=== PATIENT | male | born 1960 | race Caucasian/White ===

== ENCOUNTER 2023-08-17 13:50 | Inpatient (IN) | payer BC, SELFPAY ==
[2023-08-16 19:45] VITALS: BP 122/79
[2023-08-16 20:45] VITALS: BP 125/73
[2023-08-16 21:00] VITALS: BP 131/82
--- NOTE | 2023-08-16 21:21 | ED.GENMED ---
History of Present Illness
General
Chief Complaint: Abdominal Pain
Source: patient
Exam Limitations: none
Time Seen by Provider: 08/16/23 20:54
Nursing documentation reviewed up to this point in time: agreed with
Travel History
Have you had any contact with someone who has COVID-19?: No
Do you have any symptoms of coronavirus? Fever > 100 degrees, chills, cough, shortness of breath, sore throat, loss of taste or smell, muscle aches, or headache?: No
History of Present Illness
History of Present Illness:
pt i s a 62 y/o M
on no meds
here with constipation starting 2 days ago
normally has bm daily
2 days ago went out to [employer] and ate a lot of rice and some raw fish. he says that he felt the urge to move bowels and pain in his RLQ. he tried 1 dose miralax last night and then 2 doses this am, 2 enemas and doculax tbs and the pain was severe
in RLQ, pt was diaphoretic, sweat through sheets last night but no known fever
today was unaware that he has a fever
he was very uncomfortable but now feels better becuase he was able to have 2 BM in the waiting room
he still is tachycardic but he feels better
bm was not bloody.
no h/o diverticulitis
is scheduled for colonoscopy in 2 days.
Past History
Past History
ED Past Medical History: None
ED Past Surgical History: None
Social History
Tobacco: Non-smoker
Alcohol: None
Drug: None
Personal:
Living: with family
Employment: Employed
Review of Systems
Review of Systems
Allergies reviewed?: Yes
All Other Systems: Not applicable
Phy Exam
Physical Exam
Physical Exam:
GENERAL: Alert , in no apparent distress
EYE: pupils equal and reactive
NECK: Supple
ENT: o/p clr, mmm.
CARDIAC: tachycardic
LUNGS: Clear breath sounds bilaterally, no acute respiratory distress, no wheezes/rales/rhonchi
ABDOMEN: Soft, mod RLQ tendenress with voluntary guarding over mcburney's point
no obvious rebound
nondistneded
soft
normal bowel sounds
NEUROLOGICAL: Alert and oriented, no focal neuro deficits
SKIN: Warm and dry, skin intact.
MUSCULOSKELETAL: No edema, well perfused.
PSYCH: Normal and appropriate interaction.
Course
Orders/Labs/Results
Orders:
Orders
08/16/23 21:20
CT Abd/Pel (IV only)-DH only Urgent
Comment:
Reason For Exam: rlq pain, fever, ocnstipation
0.9% Sodium Chloride 1000 ml [Nss] 1,000 ml IV BOLUS
Acetaminophen [Tylenol] 1,000 mg PO NOW STA
08/16/23 21:39
Complete Blood Count/With Diff Urgent
Comprehensive Metabolic Panel Urgent
Lactic Acid Urgent
Lipase Urgent
Urinalysis Reflex To Culture Urgent
Date Specimen was Collected: 08/16/23
Time Specimen was Collected: 21:30
Urine Microscopic Reflex Cult Urgent
Blood Culture Q30M
SAFIA Source: Blood/Venous
Specimen Description:
Blood Culture Q30M
SAFIA Source: Blood/Venous
Specimen Description:
08/16/23 23:01
Piperacillin/Tazo 3.375 Gram [Zosyn] 3.375 gram in 50 ml IV NOW
08/17/23 00:15
Fentanyl Citrate/Pf [Sublimaze] 100 mcg .ROUTE .STK-MED ONE
Lidocaine HCl/Pf [Xylocaine-Mpf 1% Vial] 50 mg .ROUTE .STK-MED ONE
Ondansetron Injectable [Zofran] 4 mg .ROUTE .STK-MED ONE
Propofol [Diprivan] 20 ml .ROUTE .STK-MED
Rocuronium [place] [Rocuronium] 50 mg .ROUTE .STK-MED ONE
08/17/23 00:16
Midazolam HCl [Versed] 2 mg .ROUTE .STK-MED ONE
08/17/23 00:26
Bupivacaine Mpf 0.25% [Sensorcaine-Mpf 0.25% Vial] 30 ml .ROUTE .STK-MED ONE
Dexamethasone Pf [Decadron] 10 mg .ROUTE .STK-MED ONE
08/17/23 01:02
Dexamethasone Sod Phosphate [Decadron] 20 mg .ROUTE .STK-MED ONE
08/17/23 01:03
HYDROmorphone [Dilaudid] 0.25 mg IV PACU-Q5MPRN PRN
HYDROmorphone [Dilaudid] 0.5 mg IV PACU-Q5MPRN PRN
Meperidine [Demerol] 12.5 mg IV PACU-Q5MPRN PRN
Ondansetron Injectable [Zofran] 4 mg IV PACU-ONCEPRN PRN
Phenylephrine HCl/0.9% NaCl [Yonathan-Synephrine] 1,000 mcg .ROUTE .STK-MED ONE
Prochlorperazine [Compazine] 5 mg IV PACU-ONCEPRN PRN
Notify MD As Directed
Notify physician if: for SDS patients with known or suspected sleep obstructive sleep apnea, monitor in the
PACU.
Notify MD for any apneic/desaturation episodes
O2 Therapy [RESP] Urgent
Titrate/Wean O2 to maintain O2 sat greater than (%): 92
Special Instructions: -Provide supplemental oxygen to achieve O2 sat of 92% or greater.
-After 15 min, may wean O2 and discontinue if patient is able to maintain O2 sat of 92%
or greater during recovery period.
If patient is a discharge home, without oxygen therapy, notify anestheiologist if
unable to maintain O2 SAT of 92% or greater on room air for MD clearance.
08/17/23 01:15
HYDROmorphone [Dilaudid] 1 mg .ROUTE .STK-MED ONE
Normosol (Mult Electrolytes) [Normosol-R] 1,000 ml IV PER PROTOCOL
08/17/23 01:38
OR Pathology Routine
Clinical History: appendicitis
Pre-Operative Diagnosis: appendicitis
Post-Operative Diagnosis: appendicitis
Operative Procedure: laproscopic appendectomy
Surgeon: marya
Circulating Nurse: wilfrid
Specimen Type: appendix
08/17/23 02:00
Flush (0.9% Sodium Chloride) [Flush (Nss)] See Dose Instructions IV PER PROTOCOL
08/17/23 02:39
Sugammadex Sodium [Bridion] 200 mg .ROUTE .STK-MED ONE
08/17/23 03:00
Admit Patient As Directed
Co-Sign Provider:
Level of Care: Post Proc/Surg Recovery
Assign to:: Medical/Surgical
Physician / Group: [facility]
Diagnosis: s/p appendectomy
Reason for Overnight Stay: Other
Other Reason for Overnight Stay: pain control
Code Status As Directed
Resuscitation Status: Full Code
Dextrose 5%/Lactringers 1000ML [D5lr] 1,000 ml IV 80 mls/hr
Ketorolac [Toradol] 10 mg IV Q6H
Morphine Sulfate 2 mg IV Q2HPRN PRN
Morphine Sulfate 4 mg IV Q2HPRN PRN
Ondansetron Injectable [Zofran] 4 mg IV Q6HPRN PRN
Activity As Directed
Activity Level: Out of Bed- Ad [place]
Anti-embolism (EARLINE) Hose As Directed
Type: Knee high
Catheter- Indwelling As Directed
Reason for insertion: Tessa-Op Remove POD #1
Intake/ Output As Directed
Frequency: Per unit guidelines
Pneumatic Compression Sleeves As Directed
Type: Knee high
Reinforce Dressing As Directed
Vital Signs As Directed
Frequency: Post-operative guidelines
Weight As Directed
Frequency: Daily
Rx Incentive Spirometry [RESP] Routine
Frequency: q1h while awake
# of times per hour: 10
DX Deep Vein Thrombosis Video Routine
08/17/23 03:01
Drains As Directed
Type: Adan Calhoun
To suction: Yes
Comment: empty and record drainage Q shift and PRN
08/17/23 03:23
Ketorolac [Toradol] 15 mg .ROUTE .STK-MED ONE
08/17/23 04:00
Acetaminophen [Tylenol] 650 mg PO Q4HWA
08/17/23 Breakfast
Clear Liquid
08/17/23 07:00
Piperacillin/Tazo 3.375 Gram [Zosyn] 3.375 gram in 50 ml IV Q8H
08/17/23 08:00
Pantoprazole [Protonix] 40 mg PO DAILY
08/18/23 06:00
Basic Metabolic Panel IN AM
Complete Blood Count/With Diff IN AM
Magnesium IN AM
Abnormal Lab Results
08/16/23
21:39
WBC 17.8 H 10^3/uL
(4.8-10.8)
RDW 14.6 H %
(11.5-14.5)
Abs Immat Gran (auto) 0.1 H 10^3/uL
(0-0.05)
Absolute Neuts (auto) 13.4 H 10^3/uL
(1.4-6.5)
Absolute Lymphs (auto) 1.0 L 10^3/uL
(1.2-3.4)
Absolute Monos (auto) 1.4 H 10^3/uL
(0.1-0.6)
Absolute Eos (auto) 1.8 H 10^3/uL
(0-0.7)
Neutrophils % 75.6 H %
(42.2-75.2)
Lymphocytes % 5.8 L %
(20.5-51.1)
Eosinophils % 10.2 H %
(0-6)
Sodium 131 L mmol/L
(135-145)
Carbon Dioxide 19 L mmol/L
(22-30)
BUN 28 H mg/dl
(9-20)
Glucose 110 H mg/dl
(70-99)
Total Bilirubin 1.5 H mg/dl
(0.2-1.3)
Urine Ketones 1+ A
(Negative)
Ur Occult Blood Reflex 1+ A
(Negative)
Urine Bilirubin 1+ A
(Negative)
Leukocyte Esterase Rfl Trace A
(Negative)
Urine Bacteria (Reflex) Few A
(Negative)
Urine Albumin (Reflex) 1+ A
(Neg - Trace)
08/16/23 21:39
08/16/23 21:39
Vital Signs
Temp: 101.5 F
Initial and Last Documented VS:
Initial Vital Signs
Temp Pulse Resp BP Pulse Ox
99.6 F 135 18 122/79 95
08/16/23 19:45 08/16/23 19:45 08/16/23 19:45 08/16/23 19:45 08/16/23 19:45
Last Documented Vital Signs
Temp Pulse Resp BP Pulse Ox
97.9 F 77 21 120/71 92
08/17/23 03:30 08/17/23 03:30 08/17/23 03:30 08/17/23 03:30 08/17/23 03:30
MDM/Problems Addressed
Differential Diagnosis Includes:
appe, perforation, divertic, constipation
MDM/Problems Addressed:
62 y/o M no meds; 2 days constipation and RLQ pain, tried several laxatives and was able to go in our waiting room but is febrile, has wbc 17, tender RLQ with guarding, not peritonitic; bp stable;
CT: T: ACUTE APPENDICITIS with possible appendiceal rupture.
No CT evidence for periappendiceal abscess or pneumoperitoneum.
Mild splenomegaly.
Moderately enlarged prostate gland causing chronic urinary bladder outlet obstruction.
spoke with dr. griggs from surgery who will call in the OR team
zosyn ordered
pt stable.
*Critical Care Note
Total Time (30-74mins, 75-104mins- exclusive of procedures): Not Applicable
ED Attending Note
-
Portions of this chart may have been created with voice recognition software.� Occasional wrong word or��sound alike� substitutions may have occurred due to the inherent limitations of voice recognition software.
Discharge Plan
Departure
Patient Disposition: Admit
Date of Disposition: 08/16/23
Time of Disposition: 23:13
Admit to: Med/Surg
Presentation/result/management discussed w/ accepting /: anson
Patient with high blood pressure during this ER visit?: No
Condition: Fair
Covid-19: Not Applicable
Discharge Problem:
Rupture of appendix
Referrals:
Gabo Lord, [Family Provider] -
Interventions
Interventions:
*Risk Screen - Suicide Last Done: 08/16/23 19:45
*General Assessment Last Done: 08/16/23 19:45
*Neglect/Abuse Screening Last Done: 08/16/23 19:45
ED- Fall Risk Assessment Last Done: 08/16/23 21:51
*ED COVID-19 Vaccine History Last Done: 08/16/23 23:58
*Nursing Disposition Last Done: 08/17/23 00:02
SG-Tzmvjn-Nrmzdhsbxb Assessment Last Done: 08/16/23 21:51
Discharge Date and Time
Discharge Date/Time: 08/17/23 00:03
[2023-08-16 21:30] VITALS: BP 131/80
[2023-08-16 21:58] LABS: % Basophils 0.2 % (0-2); % Eosinophils 10.2 % (0-6); % Immature Granulocytes 0.4 % (0-0.5); % Lymphocytes 5.8 % (20.5-51.1); % Monocytes 7.8 % (1.7-9.3); % Neutrophils 75.6 % (42.2-75.2); Absolute Eosinophils 1.8 10^3/uL (0-0.7); Absolute Immature Granulocytes 0.1 10^3/uL (0-0.05); Absolute Monocytes 1.4 10^3/uL (0.1-0.6); Absolute Neutrophils 13.4 10^3/uL (1.4-6.5); Hematocrit 48.7 % (39.0-52.0); Mean Corp Hgb Conc. 34.9 g/dL (33.0-37.0); Mean Corpuscular Volume 80.2 fL (80.0-94.0); Mean Platelet Volume 10.4 fL (7.4-10.4); Nucleated Red Blood Cells % 0 % (-); Platelet Count 192 10^3/uL (130-400); Red Blood Cell Count 6.07 10^6/uL (4.70-6.10); Red Cell Dist. Width 14.6 % (11.5-14.5); White Blood Cell Count 17.8 10^3/uL (4.8-10.8)
[2023-08-16 22:00] LABS: Urine Albumin 1+ (Neg - Trace); Urine Bilirubin 1+ (Negative); Urine Character Clear (Clear); Urine Color Amber; Urine Glucose Negative (Negative); Urine Ketone 1+ (Negative); Urine Leukocyte Trace (Negative); Urine Nitrite Negative (Negative); Urine Occult Blood 1+ (Negative); Urine Specific Gravity 1.025 (<1.030); Urine Urobilinogen Negative (Neg - 1+)
[2023-08-16] MEDS: TYLENOL 1000 MG PO (22:05)
[2023-08-16] MEDS: NSS 1000 IV (22:06)
[2023-08-16 22:12] LABS: Urine Mucus Few; Urine Squamous Cell 0-2 /LPF (Few)
[2023-08-16 22:13] LABS: Urine Bacteria Few (Negative); Urine Red Blood Cell 0-2 /HPF (0-2)
[2023-08-16 22:18] LABS: Lactic Acid 1.3 mmol/L (0.7-2.0)
[2023-08-16 22:20] LABS: ALT (SGPT) 26 U/L (0-50); AST (SGOT) 28 U/L (17-59); Albumin 4.4 g/dl (3.5-5.0); Alkaline Phosphatase 60 U/L (38-126); Blood Urea Nitrogen 28 mg/dl (9-20); Calcium 9.6 mg/dl (8.4-10.2); Carbon Dioxide 19 mmol/L (22-30); Chloride 102 mmol/L (98-107); Glucose 110 mg/dl (70-99); Lipase 46 U/L (23-300); Potassium 4.2 mmol/L (3.5-5.1); Sodium 131 mmol/L (135-145); Total Bilirubin 1.5 mg/dl (0.2-1.3); Total Protein 7.4 g/dl (6.3-8.2); eGFR > 60.00
[2023-08-16] MEDS: ZOSYN 50 IV (23:07)
[2023-08-16 23:12] VITALS: BP 104/70
[2023-08-16 23:30] VITALS: BP 90/52
[2023-08-17] VITALS (12 sets, daily range): BP systolic 15–154; BP diastolic 52–86; BMI 32.2
--- NOTE | 2023-08-17 00:58 | W.PN.ADMIT ---
Progress Note - Admit
Progress Note - Admit
Full admit to be dictated.
Assessment/Plan: 62 yo M with acute possibly perforated appendicitis. Recommended laparoscopic appendectomy. Risks and benefits discussed and he agreed to proceed. Likely Postop observation afterwards.
--- NOTE | 2023-08-17 02:57 | W.IMMPOSTOP ---
Surgical Immed Post Op Note
-
Primary Surgeon: iNi Vang MD
Assisting Surgeon: none
Pre-op Diagnosis: acute possible perforated appendicitis
Post-op Diagnosis: acute perforated appendicitis
Procedure Performed: laparoscopic-assisted appendectomy
Anesthesia Type: general plus local
Specimen / Cultures: appendix in 2 pieces
Estimated Blood Loss: 50 cc
Complications: no immediate
Operative Findings: acute perforated appendicitis with localized associated mucopurulence/abscess
#19 Raymond in pelvis.
Leahy in bladder.
Will bring in for post surgical observation.
Continue antibiotics.
Clears ok.
[2023-08-17] MEDS: D5LR 1000 IV ×3 (03:19→20:45)
[2023-08-17] MEDS: TORADOL 10 MG IV ×4 (03:24→20:48)
--- NOTE | 2023-08-17 04:33 | TRANSFER ---
Received report from COMMUTER TRAIN OPERATOR Jazmín. Pt arrived to floor in bed accompanied by at bedside. Pt is drowsy but responds to verbal. S/p lap appy - 3 abd incisions w scant drainage and a right HAILY drain putting out s/s drainage. Coude catheter
draining clear yellow urine. Call hoang within rech, bed in lowest position, safety maintained.
[2023-08-17] MEDS: TYLENOL PO ×2 (04:43→07:56)
[2023-08-17 05:18] LABS: Glucose - Point of Care 153 mg/dl (70-99)
[2023-08-17] MEDS: OFIRMEV 100 IV (05:54)
--- NOTE | 2023-08-17 06:04 | PTCARENOTE ---
Reported to house provider that patient was diaphoretic post op, however, afebrile. ROOTER OPERATOR ordered AccuCheck(153) and rectal temp (97.9). Increased IVF to 125mL/hr and ordered 1x dose of IV ofirmev. Patient less diaphoretic now. Patient stated he felt
fine during that time. Will continue to monitor.
[2023-08-17] MEDS: ZOSYN 50 IV ×3 (06:26→18:47)
[2023-08-17] MEDS: PROTONIX 40 MG PO (07:55)
[2023-08-17] MEDS: TYLENOL 650 MG PO ×3 (13:10→20:48)
--- NOTE | 2023-08-17 13:15 | CM ---
Reviewed the chart notes and spoke with the patient at the bedside. The patient resides with his spouse in a two story home with five steps to enter. The patient reports no DME/VN/SNF in the past. The patient's discharge plans will depend on the
patient's progress. CM continues to be available to patient/family and is monitoring medical plan for needs at discharge.
Plan: Discharge plans will depend on the patient's progress.
--- NOTE | 2023-08-17 13:38 | W.PN.CRS1 ---
Today's Communication / Plan
-
Clears
Zosyn
Pain control
Assessment/Plan
-
POD#1 laparoscopic-assisted appendectomy
1. Vitals normal. WBC 17.8 as expected postop. Trend.
2. Continue antibiotics.
3. Continue HAILY drain.
4. Teds and SCDs for DVT prophylaxis. Will start Lovenox tomorrow if hemoglobin remains normal.
5. Continue Leahy today.
6. OR pathology pending.
7. Remain on clear liquids.
8. Pain control: Toradol and Tylenol standing, Dilaudid as needed.
Subjective Data
Subjective Data
Date of Service: August 17, 2023
Patient states his pain has improved. He has no hunger. He denies nausea or vomiting. He has had no bowel function yet.
Objective Data
-
Vital Signs
Temp Pulse Resp BP Pulse Ox
97.4 F 63 18 154/86 96
08/17/23 11:35 08/17/23 11:35 08/17/23 11:35 08/17/23 11:35 08/17/23 11:35
Intake & Output
08/16/23 08/17/23 08/18/23
06:59 06:59 06:59
Intake Total 440 / 440 480 / 480
Output Total 325 / 325
Balance 115 / 115 480 / 480
Intake:
Oral fluids 480 / 480
IV fluids (Total) 340 / 340
normosol 100 / 100
IV piggybacks 100 / 100
Output:
Drain Output (Total) 75 / 75
Right Middle Adan-Calhoun 75 / 75
Urine, Leahy 250 / 250
Lab Results
08/16/23 21:39
08/16/23 21:39
Physical Exam
-
General: No Acute Distress
Abdomen: Soft, Non Distended and Tender (Around incision site)
Skin: Warm and Dry
Incision: Clear, Dry, Intact
[2023-08-18] MEDS: ZOSYN 50 IV ×2 (00:24→06:18)
[2023-08-18] MEDS: TYLENOL 650 MG PO ×2 (00:24→09:01)
[2023-08-18] MEDS: TORADOL 10 MG IV ×2 (03:20→09:00)
[2023-08-18 03:35] VITALS: BP 101/72
[2023-08-18] MEDS: TYLENOL PO (04:28)
[2023-08-18 06:00] VITALS: BMI 32.9
[2023-08-18] MEDS: D5LR 1000 IV (06:18)
[2023-08-18 06:52] LABS: % Basophils 0.1 % (0-2); % Eosinophils 0.2 % (0-6); % Immature Granulocytes 0.4 % (0-0.5); % Lymphocytes 7.4 % (20.5-51.1); % Neutrophils 85.9 % (42.2-75.2); Absolute Lymphocytes 0.8 10^3/uL (1.2-3.4); Absolute Monocytes 0.6 10^3/uL (0.1-0.6); Hematocrit 36.1 % (39.0-52.0); Hemoglobin 12.5 g/dL (13.0-18.0); Mean Corp Hgb Conc. 34.6 g/dL (33.0-37.0); Mean Corpuscular Hgb 28.2 pg (27.0-31.0); Mean Corpuscular Volume 81.5 fL (80.0-94.0); Mean Platelet Volume 11.5 fL (7.4-10.4); Nucleated Red Blood Cells % 0 % (-); Platelet Count 149 10^3/uL (130-400); Red Blood Cell Count 4.43 10^6/uL (4.70-6.10); Red Cell Dist. Width 14.5 % (11.5-14.5); White Blood Cell Count 10.5 10^3/uL (4.8-10.8)
[2023-08-18 07:23] LABS: Blood Urea Nitrogen 24 mg/dl (9-20); Calcium 7.8 mg/dl (8.4-10.2); Carbon Dioxide 24 mmol/L (22-30); Chloride 104 mmol/L (98-107); Estimated Creatinine Clearance 109 ml/min; Glucose 121 mg/dl (70-99); Magnesium 2.4 mg/dl (1.6-2.3); Potassium 3.4 mmol/L (3.5-5.1); Sodium 132 mmol/L (135-145); eGFR > 60.00
[2023-08-18 07:41] VITALS: BP 98/67
[2023-08-18] MEDS: PROTONIX 40 MG PO (09:01)
--- NOTE | 2023-08-18 09:20 | W.PN.CRS1 ---
Today's Communication / Plan
-
discharge
Assessment/Plan
-
POD#2 laparoscopic-assisted appendectomy
1.� Vitals normal.� WBC 10.5, improved.
2.� Continue antibiotics. Will convert to po as an outpatient.
3.� DERREK drain discontinued at bedside.
4.� Teds and SCDs for DVT prophylaxis.�
5.� Leahy is discontinued. Await void prior to d/c.
6.� OR pathology pending.
7.� Advance to a regular diet.
8.� Pain control: Toradol and Tylenol standing, Dilaudid as needed.
9. Okay for d/c post void. All discharge instructions discussed with patient, , and daughter (via phone). Follow up in 2 weeks.
Subjective Data
Procedure
08/17/2023- Laparoscopic-assisted appendectomy.
Subjective Data
Date of Service: August 18, 2023
Patient states he is doing overall well. He has no nausea or vomiting. He tolerated clears. He feels much improved from yesterday.
Objective Data
-
Vital Signs
Temp Pulse Resp BP Pulse Ox
98.2 F 74 16 98/67 94
08/18/23 07:41 08/18/23 07:41 08/18/23 07:41 08/18/23 07:41 08/18/23 07:41
Intake & Output
08/17/23 08/18/23 08/19/23
06:59 06:59 06:59
Intake Total 440 / 440 2670 / 2670
Output Total 325 / 325 1255 / 1255
Balance 115 / 115 1415 / 1415
Intake:
Oral fluids 2520 / 2520
IV fluids (Total) 340 / 340 50 / 50
normosol 100 / 100
IV piggybacks 100 / 100 100 / 100
Output:
Drain Output (Total) 75 / 75 30 / 30
Right Middle Adan-Calhoun /
Urine, Leahy 250 / 250 1225 / 1225
Lab Results
08/18/23 05:29
08/18/23 05:29
Physical Exam
-
General: No Acute Distress and AOx3
Abdomen: Soft, Non Distended, Non Tender and Other (derrek drain serous, removed)
Wound: Dressing Changed
Incision: Other (old bloody clots but actual incision c/d/i, aguila in place, dressing changed)
--- NOTE | 2023-08-18 09:31 | CM ---
Reviewed the chart notes. HAILY drain removed at bedside. Diet advanced to regular. Anticipated discharge today after void trial completed. CM continues to be available to patient/family and is monitoring medical plan for needs at discharge.
Plan: Discharge to home with no anticipated needs.
--- NOTE | 2023-08-18 09:33 | W.DS.TRANS ---
DC Summary - Environmental Safety Specialist
-
Discharge Instructions:
Discharge Diagnosis/Procedures laparoscopic-assisted appendectomy
Diet Regular
Activity No strenuous activity
Additional Activity No lifting over 10lbs (gallon of milk)
Driving Restrictions No driving while using narcotics
Bathing Restrictions OK to Shower
Wound Care Cover midline wound with gauze and tape until
there is no further leakage. Then okay to leave
open to air. Okay to leave uncovered to shower.
Cover former drain site with gauze and tape
until it is sealed. Usually this is 3-5 days.
Okay to leave open to air to shower.
[place] will be removed in the office during
your appointment.
Instructions: Appendectomy, Laparoscopic Surgery (DC)
Stand-Alone Forms:
Changes to Home Medications: Yes
Discharge Medications:
DC Medications w/original date entered in [employer]
amoxicillin 875 mg-potassium clavulanate 125 mg tablet 1 tab PO BID 10 days #20 tabs 08/18/23
tramadol 50 mg tablet 50 mg PO Q6H PRN Pain #20 tabs 08/18/23
Home Medication Changes
amoxicillin 875 mg-potassium clavulanate 125 mg tablet 1 tab PO BID 10 days #20 tabs 08/18/23
tramadol 50 mg tablet 50 mg PO Q6H PRN Pain #20 tabs 08/18/23
Pending Results: Yes
Additional Pending Results:
OR pathology
[2023-08-18 11:53] VITALS: BP 125/70
--- NOTE | 2023-08-18 13:16 | PTCARENOTE ---
08/16 Addendum- Documentation belongs to case [id number]
== END 2023-08-18 14:50 | disposition home or self-care (01) | DRG 399 ==
LOC: 2 SOUTH 13:50
PROVIDERS: Physician Assistant; ADMITTING PHYSICIAN Surgery; EMERGENCY PHYSICIAN Emergency Medicine; FAMILY PHYSICIAN Family Medicine
PROC: 0DTJ0ZZ Resection of Appendix, Open Approach (ICD-10-PCS; 2023-08-17)
DX: K35.32 Acute appendicitis with perforation, localized peritonitis, and gangrene, without abscess (principal)
CPT/HCPCS: 88304; 74177; 80048; 80053; 81003; 81015; 82962; 83605; 83690; 83735; 85025; 87040; 96361; 96365; 99285; Q9967

== ENCOUNTER 2023-09-01 17:12 | Emergency (ER) | payer BC, SELFPAY ==
[2023-09-01 17:25] VITALS: BP 111/74
[2023-09-01 17:57] LABS: COVID-19 Antigen Negative (Negative)
--- NOTE | 2023-09-01 20:25 | ED.GENMED ---
History of Present Illness
General
Chief Complaint: Post Operative Problem(s)
Source: patient
Time Seen by Provider: 09/01/23 19:52
Travel History
Have you had any contact with someone who has COVID-19?: No
Do you have any symptoms of coronavirus? Fever > 100 degrees, chills, cough, shortness of breath, sore throat, loss of taste or smell, muscle aches, or headache?: No
History of Present Illness
History of Present Illness:
63-year-old male presents to the emergency room at the advisement of his surgeon. Patient had an appendectomy on August 17. At that time he had a perforated appendix. Patient woke up last night feeling sweaty. He has had a mild cough, runny nose
and congestion. Temperature this morning was 100.8. Patient with 1 urgent care where he had a CBC performed. White count is 12.2. This prompted his referral to the emergency room. Patient denies any abdominal pain, nausea, vomiting or diarrhea.
He has been tolerating a normal diet.
Past History
Past History
ED Past Medical History: None
ED Past Surgical History: None
Social History
Tobacco: Non-smoker
Alcohol: None
Drug: None
Personal:
Living: with family
Employment: Employed
Phy Exam
Physical Exam
Physical Exam:
General: Awake, Alert, Oriented X3. No acute distress.
Vitals: unremarkable
Head: Atraumatic
Eyes: Pupils equal, EOMI
Throat: Airway intact, no exudates
Neck: Trachea midline
Lungs: Clear and equal b/l
Heart: Regular rate, no murmurs
Abd: Soft, no rebound, no guarding, minimal tenderness right lower quadrant which patient states was present since the surgery, No pulsatile mass. Abdominal incisions healed
Neuro: Nonfocal
Skin: Warm, dry, no rash
Extremities: pulses equal b/l, no edema
Course
Orders/Labs/Results
Orders:
Orders
09/01/23 17:31
COVID-19 Antigen Urgent
Source: Nasal Swab
Influenza A+B Rapid Molecular Urgent
SAFIA Source: Nasal Swab
Specimen Description:
Vital Signs
Initial and Last Documented VS:
Initial Vital Signs
Temp Pulse Resp BP Pulse Ox
99.5 F 93 20 111/74 97
09/01/23 17:25 09/01/23 17:25 09/01/23 17:25 09/01/23 17:25 09/01/23 17:25
Last Documented Vital Signs
Temp Pulse Resp BP Pulse Ox
99.5 F 93 20 111/74 97
09/01/23 17:25 09/01/23 17:25 09/01/23 17:25 09/01/23 17:25 09/01/23 17:25
MDM/Problems Addressed
Differential Diagnosis Includes:
Viral syndrome, URI, bronchitis, postoperative infection
MDM/Problems Addressed:
White count 12.2 is noted. However the patient really does not have any subjective abdominal complaints. On exam he has very mild tenderness the right lower quadrant which he believes has been present since the surgery. Though I certainly cannot
completely exclude an intra-abdominal infection postoperatively he really does not have any physical exam findings to make this high on my differential. His white count is elevated but this is nonspecific. I think at this point it is too early to
jump to a CT abdomen pelvis. In addition to the radiation exposure I also am concerned that we might get a ambiguous CT read as he is certainly going to have some inflammatory changes in the right lower quadrant secondary to the recent surgery. I
think it is appropriate to monitor the patient clinically over the next 48 hours or so. I suspect his fever should resolve and his symptoms should improve if this is a URI. If this is an intra-abdominal infection I expect him develop more
abdominal pain at which point a CT might then be indicated.
*Critical Care Note
Total Time (30-74mins, 75-104mins- exclusive of procedures): Not Applicable
ED Attending Note
-
Portions of this chart may have been created with voice recognition software.� Occasional wrong word or��sound alike� substitutions may have occurred due to the inherent limitations of voice recognition software.
Discharge Plan
Departure
Patient Disposition: Home (Routine Discharge)
Date of Disposition: 09/01/23
Time of Disposition: 20:25
Patient with high blood pressure during this ER visit?: No
Condition: Good
Discharge Problem:
Fever, URI (upper respiratory infection)
Instructions: Fever, Adult (DC), Upper Respiratory Infection ED
Prescriptions:
No Action
amoxicillin-pot clavulanate 875-125 mg tablet
1 tab PO BID 10 Days Qty: 20 0RF
tramadol 50 mg tablet
50 mg PO Q6H PRN (Reason: Pain) Qty: 20 0RF
Activity Restrictions/Additional Instructions:
I believe your fever and congestion is due to an upper respiratory infection and not from a post-operative infection. However you should call Dr Vang if you develop abdominal pain, vomiting or the fever continues for more than a couple days.
Interventions
Interventions:
*Risk Screen - Suicide Last Done: 09/01/23 17:25
*General Assessment Last Done: 09/01/23 17:25
*Neglect/Abuse Screening Last Done: 09/01/23 17:25
Discharge Date and Time
Print Language: KHMER
[2023-09-01 20:35] VITALS: BP 118/65
== END 2023-09-01 21:00 | disposition home or self-care (01) ==
LOC: EMR 17:12
PROVIDERS: Emergency Medicine; EMERGENCY PHYSICIAN Emergency Medicine
DX: J06.9 Acute upper respiratory infection, unspecified (principal); Z11.52 Encounter for screening for COVID-19
CPT/HCPCS: 99284; 36415; 85025; 87502; 87811

== ENCOUNTER 2023-09-08 13:02 | Inpatient (IN) | payer BC, SELFPAY ==
[2023-09-08] VITALS (17 sets, daily range): BP systolic 82–134; BP diastolic 58–80; BMI 31.2; BMI 30.4
--- NOTE | 2023-09-08 06:18 | ED.GENMED ---
History of Present Illness
General
Chief Complaint: Post Operative Problem(s)
Time Seen by Provider: 09/08/23 06:18
Travel History
Have you had any contact with someone who has COVID-19?: No
Do you have any symptoms of coronavirus? Fever > 100 degrees, chills, cough, shortness of breath, sore throat, loss of taste or smell, muscle aches, or headache?: No
History of Present Illness
History of Present Illness:
HPI: The patient had laparoscopic assisted appendectomy with Dr. Vang 08/17/2023. Since that time he is been having shaking chills with sweats night and day however Tmax was 99.4. He has no significant increasing abdominal pain. He also reports
some sinus symptoms and postnasal drip. He has a mild cough. He was seen here 1 week ago with an unremarkable workup.
EXAM:
GENERAL: Well appearing in no distress
HEENT: Moist oral mucosa
CARDIOVASCULAR: No murmurs, normal heart rate, regular rhythm, No chest wall tenderness
PULMONARY: No respiratory distress, breath sounds are clear and equal
ABDOMEN: Soft with no peritoneal signs, no tenderness, small midline surgical wound lower abdomen with no evidence for
NEUROLOGIC: Excellent strength all extremities, no coordination deficits
PSYCHIATRIC: Appropriate mental status, normal insight and judgement
EXTREMITIES: Nontender, no edema, moves all extremities equally
SKIN: No rash, no lesions
TIME OF INITIAL ENCOUNTER: 6:30 AM
NUMBER AND COMPLEXITY OF PROBLEMS ADDRESSED AT THE ENCOUNTER
� Chronic conditions affecting care: Has had appendectomy last month
� Acute Exacerbation and/or Progression of Chronic Illness: This is an acute problem
� Differential Diagnosis includes: Prolonged viral syndrome, pneumonia, bronchitis, bacteremia, intra-abdominal abscess
AMOUNT AND/OR COMPLEXITY OF DATA TO BE REVIEWED AND ANALYZED
� I performed an independent evaluation of and my interpretation is:
EKG:
CT: I personally reviewed CT imaging and feel that there is a fluid collection in the right lower quadrant
X-rays:
Laboratory Studies: White count 13.9, otherwise CBC unremarkable, chemistries unremarkable, COVID-negative
Other:
� Review of other/old records: I reviewed Dr. Hassan's note from 08/17/2023 I also noted the patient had a colonoscopy 08/18/2023 that showed a 1 mm polyp in the ascending colon as well as diverticula. The patient was seen here
4024 with fever�at that time the patient's chest x-ray showed no pneumonia, blood cultures from 317 has been negative, flu test on 09/01/2023 was negative, white count on 09/01/2023 was 12.2
� Clinical information was obtained by an independent historian: I spoke to the at bedside
� Prescriptions/Medications Considered but not given:
� Further testing considered but not performed:
RISK OF COMPLICATIONS AND/OR MORBIDITY OR MORTALITY OF PATIENT MANAGEMENT
� Social determinants of health affecting care: Lives at home
� Discussion with other providers: I discussed case with Dr. Rikki Adams recommends admission to the hospital with his service and IV antibiotics. He said that he will contact IR to get their input.
� Escalation of care including admission/observation vs risk of discharge considered: Given the patient's persistent unexplained chills, will obtain CT imaging of the abdomen pelvis however he has a relatively unremarkable
abdominal exam. CT imaging abnormal and I discussed with colorectal surgery. Zosyn has been ordered. White count has been worsening therefore will admit to the hospital given the abnormal CT imaging.
Past History
Past History
ED Past Medical History: None
ED Past Surgical History: None
Social History
Tobacco: Non-smoker
Alcohol: None
Drug: None
Personal:
Living: with family
Employment: Employed
Phy Exam
Physical Exam
Physical Exam:
See HPI
Course
Orders/Labs/Results
Orders:
Orders
09/08/23 06:25
CR Chest - 2 Views Urgent
Comment:
Reason For Exam: fevers
09/08/23 06:29
CT Abd/pelvis W Iv Cont Urgent
Comment:
Reason For Exam: persistent sweats / chills after appy 2wks ago
0.9% Sodium Chloride 1000 ml [Nss] 1,000 ml IV BOLUS
09/08/23 06:43
COVID-19 Antigen Urgent
Source: Nasal Swab
Complete Blood Count/With Diff Urgent
Comprehensive Metabolic Panel Urgent
Lactate Level [Lactic Acid] Urgent
Blood Culture Urgent
SAFIA Source: Blood/Venous
Specimen Description:
Influenza A+B Rapid Molecular Urgent
SAFIA Source: Nasal Swab
Specimen Description:
09/08/23 09:24
Zosyn 3.375 grams IVPB NOW Piperacillin/Tazo 3.375 Gram [Zosyn] 3.375 gram in 50 ml IV NOW
Abnormal Lab Results
09/08/23
06:43
WBC 13.9 H 10^3/uL
(4.8-10.8)
Hct 37.1 L %
(39.0-52.0)
MCV 78.3 L fL
(80.0-94.0)
MPV 10.8 H fL
(7.4-10.4)
Abs Immat Gran (auto) 0.1 H 10^3/uL
(0-0.05)
Absolute Neuts (auto) 11.0 H 10^3/uL
(1.4-6.5)
Absolute Monos (auto) 1.4 H 10^3/uL
(0.1-0.6)
Immature Gran % 0.8 H %
(0-0.5)
Neutrophils % 79.3 H %
(42.2-75.2)
Lymphocytes % 8.8 L %
(20.5-51.1)
Monocytes % 10.0 H %
(1.7-9.3)
Sodium 131 L mmol/L
(135-145)
Carbon Dioxide 21 L mmol/L
(22-30)
Glucose 114 H mg/dl
(70-99)
ALT 51 H U/L
(0-50)
Albumin 3.4 L g/dl
(3.5-5.0)
09/08/23 06:43
09/08/23 06:43
Vital Signs
Initial and Last Documented VS:
Initial Vital Signs
Temp Pulse Resp BP Pulse Ox
98.6 F 96 20 115/70 97
09/08/23 06:02 09/08/23 06:02 09/08/23 06:02 09/08/23 06:02 09/08/23 06:02
Last Documented Vital Signs
Temp Pulse Resp BP Pulse Ox
98.6 F 77 15 116/73 96
09/08/23 06:02 09/08/23 09:02 09/08/23 09:02 09/08/23 09:01 09/08/23 07:30
*Critical Care Note
Total Time (30-74mins, 75-104mins- exclusive of procedures): Not Applicable
ED Attending Note
-
Portions of this chart may have been created with voice recognition software.� Occasional wrong word or��sound alike� substitutions may have occurred due to the inherent limitations of voice recognition software.
Discharge Plan
Departure
Patient Disposition: Admit
Date of Disposition: 09/08/23
Time of Disposition: 09:23
Presentation/result/management discussed w/ accepting MD/DO: dr rikki hall
Discharge Problem:
Abscess, intra-abdominal, postoperative
Prescriptions:
No Action
amoxicillin-pot clavulanate 875-125 mg tablet
1 tab PO BID 10 Days Qty: 20 0RF
tramadol 50 mg tablet
50 mg PO Q6H PRN (Reason: Pain) Qty: 20 0RF
Referrals:
Froy Guerrero MD [Family Provider] -
Interventions
Interventions:
*Risk Screen - Suicide Last Done: 09/08/23 06:02
*General Assessment Last Done: 09/08/23 06:02
*Neglect/Abuse Screening Last Done: 09/08/23 06:02
ED- Fall Risk Assessment Last Done: 09/08/23 06:02
*ED COVID-19 Vaccine History Last Done: 09/08/23 06:02
ED-Skin Assessment Last Done: 09/08/23 06:16
Discharge Date and Time
Print Language: GREENLANDIC
[2023-09-08] MEDS: NSS 1000 IV (06:41)
[2023-09-08 07:01] LABS: % Basophils 0.2 % (0-2); % Eosinophils 0.9 % (0-6); % Immature Granulocytes 0.8 % (0-0.5); % Lymphocytes 8.8 % (20.5-51.1); % Neutrophils 79.3 % (42.2-75.2); Absolute Eosinophils 0.1 10^3/uL (0-0.7); Absolute Immature Granulocytes 0.1 10^3/uL (0-0.05); Absolute Lymphocytes 1.2 10^3/uL (1.2-3.4); Absolute Monocytes 1.4 10^3/uL (0.1-0.6); Hematocrit 37.1 % (39.0-52.0); Mean Corpuscular Hgb 27.4 pg (27.0-31.0); Mean Corpuscular Volume 78.3 fL (80.0-94.0); Mean Platelet Volume 10.8 fL (7.4-10.4); Nucleated Red Blood Cells % 0 % (-); Platelet Count 229 10^3/uL (130-400); Red Blood Cell Count 4.74 10^6/uL (4.70-6.10); Red Cell Dist. Width 13.9 % (11.5-14.5); White Blood Cell Count 13.9 10^3/uL (4.8-10.8)
[2023-09-08 07:12] LABS: ALT (SGPT) 51 U/L (0-50); AST (SGOT) 31 U/L (17-59); Albumin 3.4 g/dl (3.5-5.0); Alkaline Phosphatase 70 U/L (38-126); Blood Urea Nitrogen 16 mg/dl (9-20); Calcium 8.9 mg/dl (8.4-10.2); Carbon Dioxide 21 mmol/L (22-30); Chloride 103 mmol/L (98-107); Estimated Creatinine Clearance 118 ml/min; Glucose 114 mg/dl (70-99); Potassium 4.4 mmol/L (3.5-5.1); Sodium 131 mmol/L (135-145); Total Bilirubin 0.6 mg/dl (0.2-1.3); Total Protein 6.3 g/dl (6.3-8.2); eGFR > 60.00
[2023-09-08 07:19] LABS: COVID-19 Antigen Negative (Negative)
[2023-09-08] MEDS: ZOSYN 50 IV ×2 (09:26→20:52)
--- NOTE | 2023-09-08 12:35 | HPS.HSE ---
Family Physician
-
Family Physician: Froy Guerrero MD
Chief Complaint
-
Chills
History of Present Illness
63-year-old male status post laparoscopic assisted appendectomy with Dr. Vang on 08/17/2023 presents to the ER due to shaking chills with night sweats. His Tmax today was 99.4. He denies any abdominal pain. His bowel movements are normal. He
states his abdomen feels more like a 'fullness'. He was in the ER last week on 09/01/2023 due to similar symptoms. His workup was unremarkable and he was sent home.
In the ER his WBC is 13.9 and his vitals are normal. CT of the abdomen and pelvis shows a bilobed fluid collection in the right lower quadrant which is difficult to delineate from adjacent fluid-filled bowel. The bilobed collection measures
approximately 6.5 x 5 x 8 cm and probably reflects an abscess. We will admit for further workup.
Medical History
Past Medical History
Past Medical History: Reports Other (Perforated appendix)
Past Surgical History: Reports Appendectomy (Laparoscopic assisted appendectomy on 08/17/2023)
Social History
Tobacco: Non-smoker
Alcohol: None
Personal:
Living: With Family
Family History
Family History: Not pertinent
Allergies / Home Medications
Allergies reflects when Allergies were last updated in [employer].
Home Medications with original date entered in [employer]
Allergy/Medication List:
Allergies: No known drug allergies
Medications: Tylenol 650 mg p.o. twice daily as needed
Mucinex 600 mg p.o. twice daily as needed
Review of Systems
-
History Source: Patient
A 12 point ROS was completed and negative except as noted: Yes
Constitutional: Reports Night Sweats and Chills
Respiratory: Reports Cough
Physical Exam
Vital Signs
Vital Signs
Temp Pulse Resp BP Pulse Ox
98.6 F 76 24 113/69 96
09/08/23 06:02 09/08/23 10:46 09/08/23 10:46 09/08/23 11:00 09/08/23 07:30
Physical Exam
General: Well Developed, Well Nourished and No Apparent Distress
GI: Tender (Right lower quadrant, mild) and Other (Abdomen feels tight)
Skin: Warm and Dry
Neuro: AO x 3
Psych: Calm
Laboratory Results
-
09/08/23 06:43
09/08/23 06:43
Laboratory Results
Lactic Acid 1.0 mmol/L (0.7-2.0) 09/08/23 06:43
Total Bilirubin 0.6 mg/dl (0.2-1.3) 09/08/23 06:43
AST 31 U/L (17-59) 09/08/23 06:43
ALT 51 U/L (0-50) H 09/08/23 06:43
Alkaline Phosphatase 70 U/L (38-126) 09/08/23 06:43
Data Reviewed
-
CT Scan: Image Personally Visualized and interpreted, Report Reviewed by me and Discussed with Physician
Lab Data: Labs Reviewed by me and Discussed with Patient
Old Records: Reviewed
Impression/Plan
-
IMPRESSION: 63-year-old male with a recent appendectomy status post perforated appendix, presents to the emergency department complaining of chills and night sweats and a WBC of 13.9, found to have a right lower quadrant fluid collection likely
abscess
PLAN:
Will admit to our service. Start IV antibiotics and IV fluids. Keep n.p.o. for now. IR has been consulted for drainage of collection. They are requesting that he drained Omnipaque contrast now for the procedure. This after drain is placed, he
may go back on a regular diet.Monitor vitals. Labs in AM.
[2023-09-08] MEDS: OMNIPAQUE 50 ML PO (13:43)
[2023-09-08 14:00] LABS: INR 1.26; PT 15.6 Sec (11.4-14.6)
[2023-09-08] MEDS: ZOSYN IV (15:21)
[2023-09-08] MEDS: TYLENOL 650 MG PO (18:25)
[2023-09-08] MEDS: TORADOL 15 MG IV (20:51)
[2023-09-08] MEDS: LOVENOX 40 MG SC (20:51)
--- NOTE | 2023-09-09 01:55 | PTCARENOTE ---
At approx 1940, pt admitted into room 337-1. Pt ambulated from stretcher to bed without difficulty. Pt AAOx3, VSS. Pt's spouse at bedside.
Received pt with new RLQ HAILY Drain - emptied 80mL serosanguineous fluid. Provided education regarding drain - pt and spouse verbalize understanding. Site care provided, dressing changed, no drainage around site. Pt reports moderate pain/tenderness in
RLQALCIDES notified, refer to MAR for Toradol order - administered with adequate relief. At approx 0100, emptied another 30mL of serosanguineous fluid from HAILY drain.
Pt updated on plan of care, call hoang within reach.
[2023-09-09] MEDS: ZOSYN 50 IV ×4 (02:41→19:22)
[2023-09-09] MEDS: TORADOL 15 MG IV ×3 (03:11→19:21)
[2023-09-09 03:51] VITALS: BP 124/76
[2023-09-09 06:35] LABS: % Basophils 0.4 % (0-2); % Eosinophils 2.3 % (0-6); % Immature Granulocytes 0.8 % (0-0.5); % Lymphocytes 10.8 % (20.5-51.1); % Monocytes 10.6 % (1.7-9.3); % Neutrophils 75.1 % (42.2-75.2); Absolute Eosinophils 0.2 10^3/uL (0-0.7); Absolute Immature Granulocytes 0.1 10^3/uL (0-0.05); Absolute Lymphocytes 0.9 10^3/uL (1.2-3.4); Absolute Monocytes 0.8 10^3/uL (0.1-0.6); Hematocrit 36.7 % (39.0-52.0); Hemoglobin 12.2 g/dL (13.0-18.0); Mean Corp Hgb Conc. 33.2 g/dL (33.0-37.0); Mean Corpuscular Volume 81.2 fL (80.0-94.0); Mean Platelet Volume 10.3 fL (7.4-10.4); Nucleated Red Blood Cells % 0 % (-); Platelet Count 201 10^3/uL (130-400); Red Blood Cell Count 4.52 10^6/uL (4.70-6.10); Red Cell Dist. Width 13.9 % (11.5-14.5)
[2023-09-09 07:00] VITALS: BP 104/69
[2023-09-09 07:09] LABS: Blood Urea Nitrogen 20 mg/dl (9-20); Calcium 8.7 mg/dl (8.4-10.2); Carbon Dioxide 26 mmol/L (22-30); Chloride 102 mmol/L (98-107); Estimated Creatinine Clearance 107 ml/min; Glucose 104 mg/dl (70-99); Potassium 4.2 mmol/L (3.5-5.1); Sodium 133 mmol/L (135-145); eGFR > 60.00
--- NOTE | 2023-09-09 08:50 | W.PN.CRS1 ---
Today's Communication / Plan
-
continue IR drain
IV abx
change dilaudid to Toradol
likely d/c in AM
Assessment/Plan
-
IMPRESSION: 63-year-old male with a recent appendectomy status post perforated appendix, presents to the emergency department complaining of chills and night sweats and a WBC of 13.9, found to have a right lower quadrant abscess s/p IR drain on
09/08/23
PLAN:
1. Continue low residue diet.
2. Labs/vitals normal.
3. OOB as tolerated.
4. IR drain in place - will continue as an outpatient until drain study occurs
5. Change Dilaudid IV PRN to Toradol IV PRN.
6. Lovenox, TEDS/SCDS for DVT prophylaxis.
7. Continue IV Zosyn.
8. Cultures pending.
9. Add incentive spirometry.
10. Likely d/c tomorrow.
Subjective Data
Subjective Data
Date of Service: September 09, 2023
Patient states he had more night sweats overnight. He denies nausea or vomiting. He is having flatus and bowel function. He is urinating without difficulty.
Objective Data
-
Vital Signs
Temp Pulse Resp BP Pulse Ox
98.3 F 67 19 104/69 95
09/09/23 07:00 09/09/23 07:00 09/09/23 07:00 09/09/23 07:00 09/09/23 07:00
Intake & Output
09/08/23 09/09/23 09/10/23
06:59 06:59 06:59
Intake Total 150 / 150
Output Total 135 / 135
Balance 15 / 15
Intake:
IV piggybacks 150 / 150
Output:
Drain Output (Total) 135 / 135
Right Lower Abdomen Placed in 135 / 135
IR
Other:
Number of approximated MODERATE 1
amounts of urine
Lab Results
09/09/23 06:15
09/09/23 06:15
Physical Exam
-
General: No Acute Distress and AOx3
Abdomen: Soft, Non Distended, Non Tender and Other (HAILY drain with serous mixed with pus output)
[2023-09-09 15:00] VITALS: BP 102/66
--- NOTE | 2023-09-09 15:21 | CM ---
Met with pt and his at bedside
Pt independent, working FT
Denies DME in home
Denies past SNF/HH
Has ride at d/c
PCP - Dr Melissa Guerrero
Pharm - [facility]
Plan - anticipate home no needs vs [facility]
[2023-09-09] MEDS: LOVENOX 40 MG SC (17:41)
[2023-09-09 23:00] VITALS: BP 117/73
[2023-09-10] VITALS: BP 117/73
[2023-09-10] MEDS: ZOSYN 50 IV ×3 (02:06→13:09)
[2023-09-10] MEDS: TORADOL 15 MG IV ×2 (02:10→08:49)
--- NOTE | 2023-09-10 06:13 | PTCARENOTE ---
Patient and family expressing concern about pt's upcoming discharge. Saying he 'needs more IV antibiotics' and are 'nervous considering what happened last time he was discharged.' Provided emotional support, explained plan of care. Will pass onto
day shift.
[2023-09-10 07:00] VITALS: BP 126/79
--- NOTE | 2023-09-10 08:31 | W.PN.CRS1 ---
Today's Communication / Plan
-
Continue antibiotics
Continue drain
Cultures pending
Assessment/Plan
-
IMPRESSION: 63-year-old male with a recent appendectomy status post perforated appendix, presents to the emergency department complaining of chills and night sweats and a WBC of 13.9, found to have a right lower quadrant abscess s/p IR drain on
09/08/23
PLAN:
1. Continue low residue diet.
2. Labs/vitals normal.
3. OOB as tolerated.
4. IR drain in place - will continue as an outpatient until drain study occurs.
5. Lovenox, TEDS/SCDS for DVT prophylaxis.
6. Continue IV Zosyn.
7. Cultures pending - prelim is E.Coli.
8. public policy manager for visiting nurse if required.
9. Spoke with patient and via telephone, family is requesting patient stay another day for IV antibiotics.
Subjective Data
Procedure
09/08/23- drain insertion by IR into abscess cavity
Subjective Data
Date of Service: September 10, 2023
Patient states he feels fine. He has no complaints today. He denies nausea or vomiting. He is tolerating a diet.
Objective Data
-
Vital Signs
Temp Pulse Resp BP Pulse Ox
97.8 F 64 16 126/79 95
09/10/23 07:00 09/10/23 07:00 09/10/23 07:00 09/10/23 07:00 09/10/23 07:00
Intake & Output
09/09/23 09/10/23 09/11/23
06:59 06:59 06:59
Intake Total 150 / 150 360 / 360
Output Total 135 / 135 25 / 25
Balance 15 / 15 335 / 335
Intake:
Oral fluids 360 / 360
IV piggybacks 150 / 150
Output:
Drain Output (Total) 135 / 135 25 / 25
Adan[place]Cal[place]
Right Lower Abdomen Placed in 135 / 135
IR
Other:
Number of approximated SMALL 1
amounts of urine
Number of approximated MODERATE 1
amounts of urine
Lab Results
09/09/23 06:15
09/09/23 06:15
Physical Exam
-
General: No Acute Distress and AOx3
Abdomen: Soft, Non Distended and Other (IR drain - serous mixed with pus output)
Skin: Warm and Dry
--- NOTE | 2023-09-10 11:03 | CM ---
Case management following for d/c planning
Plan for poss d/c today
Has drain - requesting VN. Provided options - requesting [facility]
TT to Liaison for home needs
Plan - home with [facility]
--- NOTE | 2023-09-10 13:11 | PN.CDI ---
CDI
- -
CDI:
Physician Documentation Request
Admit Date: 09/08/23 13:02
Dear Shannan Martínez,
Patient with a recent appendectomy status post perforated appendix, presents to the emergency department complaining of chills and night sweats and a WBC of 13.9, found to have a right lower quadrant abscess s/p IR drain on 09/08/23
Please clarify the following:
abscess is a complication of the surgery
abscess is unexpected but is NOT a complication of the surgery
abscess is an expected occurrence and is not a complication of surgery
abscess is inherent to/unavoidable during the surgery and is not a complication
Other
Use of terms such as suspected, likely, concern for, or probable (associated with a specific diagnosis that is being evaluated, monitored, or treated as if it exists) are acceptable and can be coded in the inpatient setting, when documented at the
time of discharge.
Thank you,
Nayana Candelaria RN, BSN
CDI Specialist
tiger text
Please use your independent medical judgment in providing your response.
--- NOTE | 2023-09-10 13:16 | PN.CDI ---
CDI
- -
CDI:
Physician Documentation Request
Admit Date: 09/08/23 13:02
Dear Shannan Martínez
Patient underwent recent appendectomy status post perforated appendix, presents to the emergency department complaining of chills and night sweats and a WBC of 13.9, found to have a right lower quadrant abscess s/p IR drain on 09/08/23
Please clarify if a relationship exist between these conditions:
Yes, abscess is related to/associated with/due to recent appendectomy
No, abscess is not related to/associated with/due to recent appendectomy
unable to determine
Use of terms such as suspected, likely, concern for, or probable (associated with a specific diagnosis that is being evaluated, monitored, or treated as if it exists) are acceptable and can be coded in the inpatient setting, when documented at the
time of discharge.
Thank you,
Nayana Candelaria RN, BSN
CDI Specialist
tiger text
Please use your independent medical judgment in providing your response.
--- NOTE | 2023-09-10 14:36 | VNURNOTE ---
Home Health Liaison met with patient and Freya at 1130 to discuss [facility] nurse visits, schedule and homebound status. Patient is agreeable and understands that visits at home will be 2-3 x per week to assess and teach medical management and
drain care. Patient's will be able to assist with drain care and flushing.
[facility] brochure provided with contact information. Patient is aware that [facility] will contact him for start of care in 1-2 days after discharge from .
[facility] referral completed in [facility].
--- NOTE | 2023-09-10 14:40 | W.DS.TRANS ---
DC Summary - Surgery Manager
-
Discharge Instructions:
Discharge Diagnosis/Procedures right lower quadrant abscess s/p IR drain
Diet Regular
Activity No strenuous activity
Driving Restrictions No driving while using narcotics.
Bathing Restrictions OK to Shower
Wound Care Allow any surgical glue to naturally fall off.
Place a gauze around the base of the HAILY site
with tape for comfort/drainage if needed.
Instructions: How to Keep Track of Your Drainage
Stand-Alone Forms:
Changes to Home Medications: Yes
Discharge Medications:
DC Medications w/original date entered in [employer]
acetaminophen 325 mg tablet (Tylenol) 650 mg PO BIDPRN PRN MILD PAIN 09/08/23
dmtcatfkuj-nxcfcdkyfgsjulh-wuhlujbayewtdzyv-acetaminophen capsule 1 cap PO HSPRN PRN COUGH 09/08/23
guaifenesin 600 mg tablet, extended release 12 hr (Mucinex) 600 mg PO BIDPRN PRN COUGH 09/08/23
sodium chloride 0.9 % (flush) (Normal Saline Flush 0.9 % injection syringe) 5 ml intra-catheter DAILY Infection #30 syringes 09/09/23
amoxicillin 875 mg-potassium clavulanate 125 mg tablet 1 tab PO TID 10 days #30 tabs 09/10/23
Home Medication Changes
sodium chloride 0.9 % (flush) (Normal Saline Flush 0.9 % injection syringe) 5 ml intra-catheter DAILY Infection #30 syringes 09/09/23
amoxicillin 875 mg-potassium clavulanate 125 mg tablet 1 tab PO TID 10 days #30 tabs 09/10/23
Pending Results: No
--- NOTE | 2023-09-10 14:49 | W.PN.UPDATE ---
Update Note
Progress Note Update
I spoke to the patient's Freya. She is ready to take the patient home today for discharge. I went over discharge instructions with her including medications and follow-up. She will call the office to make an appointment.
[2023-09-10 15:00] VITALS: BP 111/83
[2023-09-10 19:26] LABS: Hepatitis C Antibody Negative (Negative)
--- NOTE | 2023-09-11 12:12 | PN.CDI ---
CDI
- -
CDI:
Physician Documentation Request
Admit Date: 09/08/23 13:[address] Vang,
Patient underwent recent appendectomy status post perforated appendix, presents to the emergency department complaining of chills and night sweats and a WBC of 13.9, found to have a right lower quadrant abscess s/p IR drain on 09/08/23
Please clarify if a relationship exist between these conditions:
Yes, abscess is related to/associated with/due to recent appendectomy
No, abscess is not related to/associated with/due to recent appendectomy
unable to determine
Use of terms such as suspected, likely, concern for, or probable (associated with a specific diagnosis that is being evaluated, monitored, or treated as if it exists) are acceptable and can be coded in the inpatient setting, when documented at the
time of discharge.
Thank you,
Nayana Candelaria RN, BSN
CDI Specialist
tiger text
Please use your independent medical judgment in providing your response.
--- NOTE | 2023-09-11 15:42 | W.PN.UPDATE ---
Update Note
Progress Note Update
Of note, I believe this abscess was related to his prior appendectomy. He had a perforated appendicitis which put him at risk for this.
== END 2023-09-10 15:57 | disposition home health service (06) | DRG 863 ==
LOC: 3 WEST ACU 13:02
PROVIDERS: Physician Assistant; Radiology Vascular & Interventional Radiology; ADMITTING PHYSICIAN Surgery; EMERGENCY PHYSICIAN Emergency Medicine; FAMILY PHYSICIAN Family Medicine
PROC: 0W9F3ZZ Drainage of Abdominal Wall, Percutaneous Approach (ICD-10-PCS; 2023-09-08)
DX: T81.43XA Infection following a procedure, organ and space surgical site, initial encounter (principal); Z11.52 Encounter for screening for COVID-19; Y83.8 Other surgical procedures as the cause of abnormal reaction of the patient, or of later complication, without mention of misadventure at the time of the procedure
CPT/HCPCS: 49406; 71046; 74177; 80048; 80053; 83605; 85025; 85610; 86803; 87040; 87070; 87071; 87186; 87205; 87502; 87811; 96361; 96374; 99152; 99153; 99285; Q9967

== ENCOUNTER → 2023-09-18 10:30 | Outpatient (REF) | payer BC, SELFPAY ==
[2023-09-18 10:45] VITALS: BP 137/85; BP_SYST 77
--- NOTE | 2023-09-18 11:16 | PTCARENOTE ---
1105 Into procedure room. Tube injected and images reviewed. Tube removed, site dressed.
[2023-09-18 11:25] VITALS: BP 137/85
== END ==
LOC: RADI 10:30
PROVIDERS: ATTENDING PHYSICIAN Physician Assistant
DX: Z48.03 Encounter for change or removal of drains (principal); K65.1 Peritoneal abscess
CPT/HCPCS: 49424; 76080

== ENCOUNTER → 2023-10-28 13:18 | Outpatient (REF) | payer BC, SELFPAY | LOC: RAD 13:18 | PROVIDERS: ATTENDING PHYSICIAN Physician Assistant; FAMILY PHYSICIAN Family Medicine | DX: K35.32 Acute appendicitis with perforation, localized peritonitis, and gangrene, without abscess (principal) | CPT/HCPCS: 74177; Q9967 ==

== ENCOUNTER → 2024-02-24 06:16 | Day surgery (SDC) | payer BC, SELFPAY | LOC: GI 06:16 | PROVIDERS: ATTENDING PHYSICIAN Surgery | DX: Z12.11 Encounter for screening for malignant neoplasm of colon (principal); Z86.010 Personal history of colon polyps | CPT/HCPCS: G0105 ==